=== PATIENT | female | born 1945 | race Caucasian/White ===

== ENCOUNTER → 2016-07-19 | Outpatient (CLI) | payer MEDICARE, OTHER ==
[~2016-07-19] MED LIST: 00186-0370-20 IH; ASPIRIN 32325 MG/TAB PO; CINNAMON500 MG PO; COZAAR 25MG25 MG/TAB PO; ELITE MAGNESIUM1 TAB PO; ENERGY; FLAX SEED OIL1000 MG PO; GARLIC1 TAB PO; GINGER250 MG; LIPITOR20 MG PO; LUTEIN20 MG PO; NITROSTAT0.15 MG SL; NO HOME MEDICATIONS; OSTEO-BI-FLEX 21 TAB PO; PLAVIX 75MG TAB75 MG PO; POTASSIUM75 MG; RASPBERRY; RESVERATROL; RITE AID TURME500 MG PO; RT ADVAIR 128 DISKUS IH; RT ADVAIR 228 DISKUS IH; TOPROL XL 25MG25 MG PO; UNABLE; VISION VITAMINS1 TAB; VITAMIN B1225 MCG PO; VITAMIN B50 B-C1 TAB PO; VITAMIN C PUR1000 MG PO; VITAMIN D31000 IU PO; ZESTRIL2.5 MG PO; [UNRECOGNIZED DRUG - OTHER]; [UNRECOGNIZED DRUG - OTHER] NS; [UNRECOGNIZED DRUG - OTHER] PO
== END ==
LOC: COL.RAD 07:51
DX: Z53.9 Procedure and treatment not carried out, unspecified reason (principal)

== ENCOUNTER 2021-06-11 10:39 | Emergency (ER) | payer MEDICARE, OTHER ==
[~2021-06-11] VITALS: Ht 165.1 cm; Wt 77.3 kg
[2021-06-11 11:04] VITALS: TEMP 98.3
[2021-06-11 11:27] LABS: BASO % 0.6 % (0.0-2.0); EOS # 0.3 K/mm3 (0.0-0.7); EOS % 3.6 % (0.0-4.0); GRAN # 4.7 K/mm3 (1.4-6.5); GRAN % 66.8 % (42.2-75.2); HEMATOCRIT 37.3 % (37.0-47.0); HEMOGLOBIN 12.2 g/dl (12.5-16.0); LYMPH # 1.3 K/mm3 (1.2-3.4); LYMPH % 18.8 % (20.0-51.0); MEAN CELL VOLUME 94 fl (80.0-100.0); MEAN CORPUSCULAR HEMOGLOBIN 31 pg (27-31); MEAN CORPUSCULAR HGB CONC 33 g/dl (33.0-37.0); MEAN PLATELET VOLUME 9.3 fl (7.4-10.4); MONO # 0.6 K/mm3 (0.1-0.6); MONO % 9.1 % (1.7-9.3); PLATELET COUNT 266 K/mm3 (130-400); RED BLOOD COUNT 3.97 M/mm3 (4.10-5.30); REDCELL DISTRIBUTION WIDTH-CV 13.2 % (11.5-14.5)
[2021-06-11 11:43] LABS: ALBUMIN 3.7 gm/dL (3.4-4.8); BILIRUBIN,TOTAL 0.4 mg/dL (0.2-1.2); CALCIUM 8.7 mg/dL (8.4-10.2); CREATININE, serum 0.74 mg/dL (0.57-1.11); POTASSIUM 4.1 mmol/L (3.5-4.5); TOTAL PROTEIN 6.7 gm/dL (6.2-8.1)
[2021-06-11] MEDS ORDERED: ZITHROMAX Z PA250 MG PO (12:50)
[2021-06-11] MEDS ORDERED: PREDNISONE20 MG PO (12:50)
[2021-06-11 13:05] VITALS: BP 157/77; PULSE 65
== END 2021-06-11 13:05 | disposition home or self-care (01) ==
LOC: COL.ER 10:39
PROVIDERS: Family Medicine
DX: J45.909 Unspecified asthma, uncomplicated (principal)
CPT/HCPCS: J2930

== ENCOUNTER → 2023-10-12 | Outpatient (CLI) | payer MEDICARE, OTHER ==
[~2023-10-12] VITALS: Ht 162.6 cm; Wt 75.1 kg
[~2023-10-12] MED LIST changes: +00186-0372-20 IH; +AVAPRO75 MG PO; +BERGAMOT; +CVS SPECTRAVIT1 EA15 PO; +D-RIBOSE; +OMEGA-3 1000 MG1 CAP PO; +PREDNISONE20 MG PO; +PROBIOTIC BLEN1 EACH PO; +Regadenoson 0.08 MG/ML 5 ML SYRINGE IV SCH; +SAM E PO; +THE MEDICINE S200 M2 PO; +TOPROL XL 50MG50 MG PO; +VITAMINC1000TA; +VITAMINE200; +WHITE WILLOW BARK PO; +ZITHROMAX Z PA250 MG PO; +[UNRECOGNIZED DRUG - OTHER]; +[UNRECOGNIZED DRUG - OTHER]; +[UNRECOGNIZED DRUG - OTHER]
[2023-10-12 09:14] VITALS: BP 173/77; PULSE 63; TEMP 98.1
[2023-10-12 10:15] VITALS: BP 178/78; PULSE 52
[2023-10-12 10:19] VITALS: BP 122/67; PULSE 63
[2023-10-12 10:20] VITALS: BP 159/76; PULSE 88
[2023-10-12 10:21] VITALS: BP 158/80; PULSE 83
== END ==
LOC: COL.RAD 08:26
DX: R06.00 Dyspnea, unspecified (principal)
CPT/HCPCS: A9500-JZ; J2785